=== PATIENT | female | born 1945 | race Caucasian/White ===

== ENCOUNTER → 2016-09-03 | Outpatient (REF) | payer MEDICARE, OTHER | LOC: M LAB 11:20 | PROVIDERS: ATTEND Physician Assistant Medical | DX: N39.0 Urinary tract infection, site not specified (principal) ==

== ENCOUNTER → 2016-09-14 | Outpatient (REF) | payer MEDICARE, OTHER | LOC: M LAB REF 09:34 | PROVIDERS: ATTEND Physician Assistant Medical | DX: N39.0 Urinary tract infection, site not specified (principal) ==

== ENCOUNTER → 2017-03-14 | Outpatient (REF) | payer MEDICARE, OTHER | LOC: M LAB REF 09:49 | PROVIDERS: ATTEND Physician Assistant | DX: N39.0 Urinary tract infection, site not specified (principal) ==

== ENCOUNTER → 2017-04-14 | Outpatient (CLI) | payer MEDICARE, OTHER ==
--- NOTE | 2017-04-14 14:58 | REP ---
LEFT KNEE SERIES: Five views of the left knee are performed. There is no acute fracture or dislocation. There is mild diffuse joint space narrowing in all joint compartments with mild subchondral sclerosis. There is mild spurring of the lateral patellar facet. I do not see a significant joint effusion. There is mild chondrocalcinosis in the medial and lateral joints. IMPRESSION: Mild degenerative changes as above. Signed by Abdifatah Schafer MD 04/14/2017 04:19 P
== END ==
LOC: M RAD 08:24
PROVIDERS: ATTEND Physician Assistant Medical
DX: M17.12 Unilateral primary osteoarthritis, left knee (principal)

== ENCOUNTER → 2017-05-02 | Outpatient (REF) | payer MEDICARE, OTHER | LOC: M LAB REF 13:13 | PROVIDERS: ATTEND Internal Medicine | DX: E21.3 Hyperparathyroidism, unspecified (principal) ==

== ENCOUNTER → 2017-10-12 | Outpatient (REF) | payer MEDICARE, OTHER ==
[2017-10-12 20:18] LABS: APPEARANCE, URINE CLEAR (CLEAR); BACTERIA, URINE AUTO 2+ (NEGATIVE); BILIRUBIN, URINE AUTO NEGATIVE (NEGATIVE); BLOOD, URINE BLOOD 1+ (NEGATIVE); COLOR, URINE STRAW (YELLOW); GLUCOSE, URINE (UA) AUTO NEGATIVE (NEGATIVE); KETONE, URINE AUTO NEGATIVE (NEGATIVE); LEUKOCYTE ESTERASE, URINE AUTO 2+ (NEGATIVE); NITRITE, URINE AUTO NEGATIVE (NEGATIVE); PROTEIN, URINE AUTO NEGATIVE (NEGATIVE); RBC, URINE AUTO 0 /HPF (0-3); SPECIFIC GRAVITY URINE AUTO 1.001 (1.002-1.035); SQUAMOUS EPITHELIAL CELL UR AU 0 /HPF (0-6); UROBILINOGEN, URINE AUTO 0.2 mg/dL (0.0-2.0); WBC, URINE AUTO 14 /HPF (0-3)
== END ==
LOC: M LAB REF 09:26
DX: N39.0 Urinary tract infection, site not specified (principal)
CPT/HCPCS: 81001

== ENCOUNTER → 2018-02-11 | Outpatient (CLI) | payer MEDICARE, OTHER ==
[2018-02-11 17:40] LABS: CREATININE FOR GFR 0.61 MG/DL (0.55-1.30); GLOMERULAR FILTRATION RATE > 60.0 (>39)
[2018-02-11 17:40] LABS: BLOOD UREA NITROGEN 15 MG/DL (7-18)
== END ==
LOC: M WUC 12:58
DX: D49.7 Neoplasm of unspecified behavior of endocrine glands and other parts of nervous system (principal); Z13.89 Encounter for screening for other disorder
CPT/HCPCS: 82565

== ENCOUNTER → 2018-09-17 | Outpatient (REF) | payer MEDICARE, OTHER | LOC: M LAB REF 13:23 | PROVIDERS: ATTEND Internal Medicine | DX: E83.52 Hypercalcemia (principal) ==

== ENCOUNTER 2018-12-25 07:45 | Day surgery (SDC) | payer MEDICARE, OTHER ==
[~2018-12-25] VITALS: Ht 167.6 cm; Wt 78.0 kg
[~2018-12-25 07:45] MED LIST: AMLO1TAB37 PO; ATOR1TAB21 PO; HYDR12CA PO; INSULANT SC; METF500T13 PO; METO1TAB7 PO; NS 1,000 ML IV ONE
[2018-12-25] MEDS ORDERED: PROPOFOL 200 MG/20 ML VIAL As Ordered ONE (07:57)
[2018-12-25] MEDS ORDERED: LIDOCAINE 2% INJ 100 MG/5 ML SDV (FOR ANES.) As Ordered ONE (07:57)
[2018-12-25] MEDS ORDERED: ePHEDrine SULFATE 25 MG/5 ML(5MG/ML) SYRINGE As Ordered ONE (09:06)
--- NOTE | 2018-12-25 09:25 | ROOR ---
Patient Name: Cindi Mireles Procedure Date: 12/25/2018 8:55 AM Date of : 1945 Age: 73 Room: [facility] Gender: Female Note Status: Finalized Procedure: Total Colonoscopy to Cecum + Cold Snare Polypectomy + Hemoclips Indications: High risk colon cancer surveillance: Personal history of colonic polyps Providers: Luis Miguel Pro MD Referring MD: ALON MEJIA JR, MD Requesting Provider: Medicines: Monitored Anesthesia Care Complications: No immediate complications. Procedure: Pre-Anesthesia Assessment: - The heart rate, respiratory rate, oxygen saturations, blood pressure, adequacy of pulmonary ventilation, and response to care were monitored throughout the procedure. The Colonoscope was introduced through the anus and advanced to the cecum, identified by appendiceal orifice and ileocecal valve. The colonoscopy was performed without difficulty. The patient tolerated the procedure well. The quality of the bowel preparation was excellent. Findings: The perianal and digital rectal examinations were normal. Non-bleeding internal hemorrhoids were found during retroflexion. The hemorrhoids were small and Grade I (internal hemorrhoids that do not prolapse). Three sessile polyps were found at 35 cm proximal to the anus. The polyps were small in size. These polyps were removed with a cold snare. Resection and retrieval were complete. To prevent bleeding after the polypectomy, three hemostatic clips were successfully placed (MR conditional). There was no bleeding at the end of the procedure. Scattered small-mouthed diverticula were found in the recto-sigmoid colon, sigmoid colon and descending colon. The exam was otherwise without abnormality on direct and retroflexion views. Impression: - Non-bleeding internal hemorrhoids. - Three small polyps at 35 cm proximal to the anus, removed with a cold snare. Resected and retrieved. Clips (MR conditional) were placed. - Diverticulosis in the recto-sigmoid colon, in the sigmoid colon and in the descending colon. - The examination was otherwise normal on direct and retroflexion views. - The exam was otherwise normal to the cecum. Recommendation: - Patient has a contact number available for emergencies. The signs and symptoms of potential delayed complications were discussed with the patient. Return to normal activities tomorrow. Written discharge instructions were provided to the patient. - High fiber diet. - Discharge patient to home. - Continue present medications. - Await pathology results. - Telephone GI clinic for pathology results in 1 week. - Repeat colonoscopy in 5 years for surveillance based on pathology results. - Return to referring physician. - The findings and recommendations were discussed with the patient's family. Luis Miguel Pro MD Luis Miguel Pro MD 12/25/2018 9:25:05 AM Electronically signed by Luis Miguel Pro MD Number of Addenda: 0 Note Initiated On: 12/25/2018 8:55 AM Estimated Blood Loss: Estimated blood loss: none.
[2018-12-25 09:45] VITALS: BP 112/59
== END 2018-12-25 09:58 | disposition home or self-care (01) ==
LOC: M OPP 07:45
PROVIDERS: ATTEND Internal Medicine Gastroenterology
DX: Z12.11 Encounter for screening for malignant neoplasm of colon (principal); Z86.010 Personal history of colon polyps; K64.0 First degree hemorrhoids; D12.5 Benign neoplasm of sigmoid colon; K57.30 Diverticulosis of large intestine without perforation or abscess without bleeding; I10 Essential (primary) hypertension; E11.9 Type 2 diabetes mellitus without complications; M19.90 Unspecified osteoarthritis, unspecified site; M54.2 Cervicalgia; Z88.2 Allergy status to sulfonamides; Z79.899 Other long term (current) drug therapy; Z79.4 Long term (current) use of insulin

== ENCOUNTER → 2019-02-11 | Outpatient (CLI) | payer MEDICARE, OTHER ==
[~2019-02-11] MED LIST changes: -NS 1,000 ML IV ONE
[2019-02-11 20:24] LABS: BLOOD UREA NITROGEN 11 MG/DL (7-18); CREATININE FOR GFR 0.63 MG/DL (0.55-1.30); GLOMERULAR FILTRATION RATE > 60.0 (>39)
== END ==
LOC: M WUC 15:50
PROVIDERS: ATTEND Neurological Surgery
DX: D49.7 Neoplasm of unspecified behavior of endocrine glands and other parts of nervous system (principal); Z13.89 Encounter for screening for other disorder

== ENCOUNTER → 2019-08-04 | Outpatient (REF) | payer MEDICARE, OTHER ==
[2019-08-04 17:10] LABS: APPEARANCE, URINE CLEAR (CLEAR); BACTERIA, URINE AUTO 1+ (NEGATIVE); BILIRUBIN, URINE AUTO NEGATIVE (NEGATIVE); BLOOD, URINE BLOOD 1+ (NEGATIVE); COLOR, URINE COLORLESS (YELLOW); GLUCOSE, URINE (UA) AUTO NEGATIVE (NEGATIVE); KETONE, URINE AUTO NEGATIVE (NEGATIVE); LEUKOCYTE ESTERASE, URINE AUTO 1+ (NEGATIVE); NITRITE, URINE AUTO NEGATIVE (NEGATIVE); PROTEIN, URINE AUTO NEGATIVE (NEGATIVE); RBC, URINE AUTO 0 /HPF (0-3); SPECIFIC GRAVITY URINE AUTO 1.002 (1.002-1.035); SQUAMOUS EPITHELIAL CELL UR AU 0 /HPF (0-6); UROBILINOGEN, URINE AUTO 0.2 mg/dL (0.0-2.0); WBC, URINE AUTO 10 /HPF (0-3)
== END ==
LOC: M LAB REF 16:27
PROVIDERS: ATTEND Physician Assistant Medical
DX: N39.0 Urinary tract infection, site not specified (principal)

== ENCOUNTER → 2020-02-23 | Outpatient (CLI) | payer MEDICARE, OTHER ==
[2020-02-23 20:14] LABS: BLOOD UREA NITROGEN 13 MG/DL (7-18); CREATININE FOR GFR 0.73 MG/DL (0.55-1.30); GLOMERULAR FILTRATION RATE > 60.0 (>39)
== END ==
LOC: M WUC 15:45
PROVIDERS: ATTEND Neurological Surgery
DX: D49.7 Neoplasm of unspecified behavior of endocrine glands and other parts of nervous system (principal)

== ENCOUNTER → 2020-07-07 | Outpatient (REF) | payer MEDICARE, OTHER ==
[2020-07-07 18:03] LABS: APPEARANCE, URINE CLEAR (CLEAR); BACTERIA, URINE AUTO 1+ (NEGATIVE); BILIRUBIN, URINE AUTO NEGATIVE (NEGATIVE); BLOOD, URINE BLOOD 3+ (NEGATIVE); COLOR, URINE STRAW (YELLOW); GLUCOSE, URINE (UA) AUTO NEGATIVE (NEGATIVE); KETONE, URINE AUTO NEGATIVE (NEGATIVE); LEUKOCYTE ESTERASE, URINE AUTO 3+ (NEGATIVE); NITRITE, URINE AUTO NEGATIVE (NEGATIVE); PROTEIN, URINE AUTO NEGATIVE (NEGATIVE); RBC, URINE AUTO 1 /HPF (0-3); SPECIFIC GRAVITY URINE AUTO 1.001 (1.002-1.035); SQUAMOUS EPITHELIAL CELL UR AU 0 /HPF (0-6); UROBILINOGEN, URINE AUTO 0.2 mg/dL (0.0-2.0); WBC, URINE AUTO 6 /HPF (0-3)
== END ==
LOC: M LAB REF 16:40
PROVIDERS: ATTEND Physician Assistant
DX: N39.0 Urinary tract infection, site not specified (principal)

== ENCOUNTER 2020-07-18 11:55 | Emergency (ER) | payer MEDICARE, OTHER ==
[~2020-07-18] VITALS: Ht 167.6 cm; Wt 79.6 kg
--- NOTE | 2020-07-18 13:32 | REP ---
INDICATION: firm, nontender area above left hip. COMPARISON: None. TECHNIQUE: Soft tissue ultrasound in the region of the palpable lump above the left hip. FINDINGS: Sonographic evaluation in this region shows no discrete mass, fluid collection, architectural distortion or skin thickening. IMPRESSION: Negative the ultrasound in the area of the palpable finding. Please recall that a lipoma, if that is a consideration, may be palpable but not visible sonographically in the absence of a capsule. <Electronically signed by Emile Beckett > 07/18/20 [id number]
--- OUTSIDE RECORDS SUMMARY | 2020-07-18 13:39 | CCD ---
Author Author [facility] Organization [facility] Address Unknown Phone Unavailable Care Team Providers Care Ssn/Ssbn Assistant Navigator Name Role Phone Benjie Coughlin MD Unavailable Unavailable Benjie Coughlin MD Unavailable Unavailable Benjie Coughlin MD Unavailable Unavailable Benjie Coughlin MD Unavailable Unavailable Benjie Coughlin MD Unavailable Unavailable Benjie Coughlin MD Unavailable Unavailable Benjie Coughlin MD Unavailable Unavailable Benjie Coughlin MD Unavailable Unavailable Benjie Coughlin MD Unavailable Unavailable Benjie Coughlin MD Unavailable Unavailable Benjie Coughlin MD Unavailable Unavailable Benjie Coughlin MD Unavailable Unavailable Benjie Coughlin MD Unavailable Unavailable Benjie Coughlin MD Unavailable Unavailable Benjie Coughlin MD Unavailable Unavailable Benjie Coughlin MD Unavailable Unavailable Benjie Coughlin MD Unavailable Unavailable Benjie Coughlin MD Unavailable Unavailable Benjie Coughlin MD Unavailable Unavailable Benjie Coughlin MD Unavailable Unavailable Benjie Coughlin MD Unavailable Unavailable Benjie Coughlin MD Unavailable Unavailable Benjie Coughlin MD Unavailable Unavailable Benjie Coughlin MD Unavailable Unavailable Benjie Coughlin MD Unavailable Unavailable Benjie Coughlin MD Unavailable Unavailable Benjie Coughlin MD Unavailable Unavailable CedBenjie MD Unavailable Unavailable CedBenjie MD Unavailable Unavailable CedBenjie MD Unavailable Unavailable BergtonBenjie MD Unavailable Unavailable CedBenjie MD Unavailable Unavailable BergtonBenjie MD Unavailable Unavailable CedBenjie MD Unavailable Unavailable BergtonBenjie MD Unavailable Unavailable BergtonBenjie MD Unavailable Unavailable BergtonBenjie MD Unavailable Unavailable CedBenjie MD Unavailable Unavailable BergtonBenjie MD Unavailable Unavailable CedBenjie MD Unavailable Unavailable CedBenjie MD Unavailable Unavailable CedBenjie MD Unavailable Unavailable CedBenjie MD Unavailable Unavailable CedBenjie MD Unavailable Unavailable CedBenjie MD Unavailable Unavailable BergtonBenjie MD Unavailable Unavailable BergtonBenjie MD Unavailable Unavailable CedBenjie MD Unavailable Unavailable CedBenjie MD Unavailable Unavailable CedBenjie MD Unavailable Unavailable CedBenjie MD Unavailable Unavailable CedBenjie MD Unavailable Unavailable CedBenjie MD Unavailable Unavailable BergtonBenjie MD Unavailable Unavailable BergtonBenjie MD Unavailable Unavailable CedBenjie MD Unavailable Unavailable BergtonBenjie MD Unavailable Unavailable BergtonBenjie MD Unavailable Unavailable CedBenjie MD Unavailable Unavailable CedBenjie MD Unavailable Unavailable BergtonBenjie MD Unavailable Unavailable CedBenjie MD Unavailable Unavailable CedBenjie donaldson MD Unavailable Unavailable BergtonBenjie MD Unavailable Unavailable CedBenjie MD Unavailable Unavailable BergtonBenjie MD Unavailable Unavailable CedBenjie MD Unavailable Unavailable CedBenjie MD Unavailable Unavailable CedBenjie MD Unavailable Unavailable CedBenjie MD Unavailable Unavailable CedBenjie MD Unavailable Unavailable BergtonBenjie MD Unavailable Unavailable BergtonBenjie MD Unavailable Unavailable CedBenjie MD Unavailable Unavailable CedBenjie MD Unavailable Unavailable BergtonBenjie MD Unavailable Unavailable CedBenjie MD Unavailable Unavailable BergtonBenjie MD Unavailable Unavailable CedBenjie MD Unavailable Unavailable BergtonBenjie MD Unavailable Unavailable BergtonBenjie MD Unavailable Unavailable CedBenjie MD Unavailable Unavailable BergtonBenjie MD Unavailable Unavailable Bergton, Benjie Torres MD Unavailable Unavailable Bergton, Benjie Torres MD Unavailable Unavailable Bergton, Benjie Torres MD Unavailable Unavailable RAYA, Sofia RIVERA MD Unavailable Unavailable RAYA, Sofia RIVERA MD Unavailable Unavailable RAYA, Sofia RIVERA MD Unavailable Unavailable RAYA, Sofia RIVERA MD Unavailable Unavailable RAYA, Sofia RIVERA MD Unavailable Unavailable RAYA, Sofia RIVERA MD Unavailable Unavailable RAYA, Sofia RIVERA MD Unavailable Unavailable RAYA, Sofia RIVERA MD Unavailable Unavailable RAYA, Sofia RIVERA MD Unavailable Unavailable RAYA, Sofia RIVERA MD Unavailable Unavailable RAYA, Sofia RIVERA MD Unavailable Unavailable RAYA, Sofia RIVERA MD Unavailable Unavailable RAYA, Sofia RIVERA MD Unavailable Unavailable RAYA, Sofia RIVERA MD Unavailable Unavailable RAYA, Sofia RIVERA MD Unavailable Unavailable RAYA, Sofia RIVERA MD Unavailable Unavailable RAYA, Sofia RIVERA MD Unavailable Unavailable RAYA, Sofia RIVERA MD Unavailable Unavailable RAYA, Sofia RIVERA MD Unavailable Unavailable RAYA, Sofia RIVERA MD Unavailable Unavailable RAYA, Sofia RIVERA MD Unavailable Unavailable RAYA, Sofia RIVERA MD Unavailable Unavailable RAYA, Sofia RIVERA MD Unavailable Unavailable RAYA, Sofia RIVERA MD Unavailable Unavailable RAYA, Sofia RIVERA MD Unavailable Unavailable RAYA, Sofia RIVERA MD Unavailable Unavailable RAYA, Sofia RIVERA MD Unavailable Unavailable RAYA, Sofia RIVERA MD Unavailable Unavailable RAYA, Sofia RIVERA MD Unavailable Unavailable RAYA, Sofia RIVERA MD Unavailable Unavailable RAYA, Sofia RIVERA MD Unavailable Unavailable RAYA, Sofia RIVERA MD Unavailable Unavailable RAYA, Sofia RIVERA MD Unavailable Unavailable RAYA, Sofia RIVERA MD Unavailable Unavailable RAYA, Sofia RIVERA MD Unavailable Unavailable RAYA, Sofia RIVERA MD Unavailable Unavailable RAYA, Sofia RIVERA MD Unavailable Unavailable RAYA, Sofia RIVERA MD Unavailable Unavailable RAYA, Sofia RIVERA MD Unavailable Unavailable RAYA, Sofia RIVERA MD Unavailable Unavailable RAYA, A KEN ARAMBULA Unavailable Unavailable RAYA, Sofia RIVERA MD Unavailable Unavailable RAYA, Sofia RIVERA MD Unavailable Unavailable RAYA, Sofia RIVERA MD Unavailable Unavailable RAYA, Sofia RIVERA MD Unavailable Unavailable RAYA, A KEN ARAMBULA Unavailable Unavailable RAYA, A KEN ARAMBULA Unavailable Unavailable RAYA, Sofia RIVERA MD Unavailable Unavailable RAYA, Sofia RIVERA MD Unavailable Unavailable RAYA, Sofia RIVERA MD Unavailable Unavailable RAYA, A KEN ARAMBULA Unavailable Unavailable RAYA, A KEN ARAMBULA Unavailable Unavailable RAYA, Sofia RIVERA MD Unavailable Unavailable RAYA, Sofia RIVERA MD Unavailable Unavailable RAYA, Sofia RIVERA MD Unavailable Unavailable RAYA, Sofia RIVERA MD Unavailable Unavailable RAYA, Sofia RIVERA MD Unavailable Unavailable RAYA, Sofia RIVERA MD Unavailable Unavailable RAYA, Sofia RIVERA MD Unavailable Unavailable RAYA, Sofia RIVERA MD Unavailable Unavailable RAYA, Sofia RIVERA MD Unavailable Unavailable RAYA, Sofia RIVERA MD Unavailable Unavailable RAYA, Sofia RIVERA MD Unavailable Unavailable RAYA, Sofia RIVERA MD Unavailable Unavailable RAYA, Sofia RIVERA MD Unavailable Unavailable RAYA, Sofia RIVERA MD Unavailable Unavailable RAYA, Sofia RIVERA MD Unavailable Unavailable RAYA, Sofia RIVERA MD Unavailable Unavailable RAYA, Sofia RIVERA MD Unavailable Unavailable RAYA, Sofia RIVERA MD Unavailable Unavailable RAYA, Sofia RIVERA MD Unavailable Unavailable RAYA, Sofia RIVERA MD Unavailable Unavailable RAYA, Sofia RIVERA MD Unavailable Unavailable RAYA, Sofia RIVERA MD Unavailable Unavailable RAYA, Sofia RIVERA MD Unavailable Unavailable RAYA, Sofia RIVERA MD Unavailable Unavailable RAYA, Sofia RIVERA MD Unavailable Unavailable RAYA, Sofia RIVERA MD Unavailable Unavailable RAYA, Sofia RIVERA MD Unavailable Unavailable RAYA, Sofia RIVERA MD Unavailable Unavailable RAYA, Sofia RIVERA MD Unavailable Unavailable RAYA, A KEN MD Unavailable Unavailable RAYA, A KEN MD Unavailable Unavailable RAYA, A KEN MD Unavailable Unavailable RAYA, A KEN MD Unavailable Unavailable Re-disclosure Warning The records that you are about to access may contain information from federally-assisted alcohol or drug abuse programs. If such information is present, then the following federally mandated warning applies: This information has been disclosed to you from records protected by federal confidentiality rules (42 CFR part 2). The federal rules prohibit you from making any further disclosure of this information unless further disclosure is expressly permitted by the written consent of the person to whom it pertains or as otherwise permitted by 42 CFR part 2. A general authorization for the release of medical or other information is NOT sufficient for this purpose. The Federal rules restrict any use of the information to criminally investigate or prosecute any alcohol or drug abuse patient.The records that you are about to access may contain highly sensitive health information, the redisclosure of which is protected by Article 27-F of the [facility] Public Health law. If you continue you may have access to information: Regarding HIV / AIDS; Provided by facilities licensed or operated by the [facility] Office of Mental Health; or Provided by the [facility] Office for People With Developmental Disabilities. If such information is present, then the following [facility] mandated warning applies: This information has been disclosed to you from confidential records which are protected by state law. State law prohibits you from making any further disclosure of this information without the specific written consent of the person to whom it pertains, or as otherwise permitted by law. Any unauthorized further disclosure in violation of state law may result in a fine or shelter sentence or both. A general authorization for the release of medical or other information is NOT sufficient authorization for further disc losure. Family History Family Member Name Family Member Gender Family Member Status Date o f Status Description Data Source(s) Unknown Male Problem [facility] ([facility]) ONSET AGE 54. AT AGE 89 Unknown Female Encounters Encounter Providers Location Date Indications Data Source(s ) Outpatient Attender: Brian Watkins 1 03:00:00 PM EDT [facility] ([facility] ) Outpatient Attender: KEN DOS SANTOS MD [id number] 03/16/2020 12:00:00 AM [facility] Outpatient Attender: KEN DOS SANTOS MD 02/16/2020 12 :00:00 AM [facility] Outpatient Referrer: KEN DOS SANTOS MD 02/16/2020 12 :00:00 AM [facility] Outpatient Attender: Brian Coughlin Roland 0 09/16/2019 03:00:00 PM EDT [facility] ([facility] ) Immunizations Vaccine Date Status Description Data Source(s) Influenza, injectable, MDCK, preservative free, alirio valent 03/17/2020 03:30:00 PM EDT completed [facility]) Medications Medication Brand Name Start Date Product Form Dose Route Admi nistrative Instructions Pharmacy Instructions Status Indications Reaction Description Data Source(s) 3 gram 07/09/2020 12:00:00 AM EST packet 1 TAKE 3G BY MOUTH ONCE TAKE 3G BY MOUTH ONCE SOLD: 07/10/2020 [facility] Cephalexin 500 MG Oral Capsule CEPHALEXIN 07/07/2020 12:00:00 AM EST capsule 21 TAKE ONE CAPSULE BY MOUTH THREE TIMES A DAY FOR 7 DAYS TAKE ONE CAPSULE BY MOUTH THREE TIMES A DAY FOR 7 DAYS SOLD: 07/07/2020 [facility] Administration Of Flu Vaccine 03/17/2020 12:00:00 AM EDT completed [facility] ([facility]) Medication administered onsite 500 mg 08/04/2019 12:00:00 AM EDT tablet 10 TAKE ONE TABLET BY MOUTH EVERY 12 HOURS FOR 5 DAYS TAKE ONE TABLET BY MOUTH EVERY 12 HOURS FOR 5 DAYS [facility] Adacel 07/15/2019 12:00:00 AM EST completed [facility] ([facility]) Medication administered onsite BD Pen Frank Uf Mini 5mm 31G3/16 07/06/2019 12:00:00 AM EST active [facility] ([facility] ) Insurance Providers Payer name Policy type / Coverage type Policy ID Covered alliance party ID Covered alliance party's relationship to anders Policy Anders Plan Information R [facility] [id number] SP [id number] MEDICARE [id number] SP [id number] MEDICARE A [id number] Self [id number] UMR U [id number] Self [id number] UMR O [id number] S [id number] MEDICARE C [id number] S [id number] UMR HEA [id number] S [id number] MEDICARE MCA [id number] S [id number] [id number] MEDICARE MCA [id number] S [id number] UMR HEA [id number] S [id number] MEDICARE MCA [id number] S [id number] A MEDICARE MCA [id number] S [id number] A UMR [facility] CARE [id number] SP [id number] Umr Medigap Part B [id number] Self [id number] Medicare [place] Primary [id number] Self [id number] [facility] HEA [id number] S [id number] UNAVAILABLE UNAVAILA BLE [facility] HEA UNAVAILABLE S UNAVAILABLE MEDICARE A [id number] Self [id number] POMCO U [id number] Self [id number] POMCO [id number] SP [id number] MEDICARE [id number] SP [id number] A Umr [place] Ppo Medigap Part B [id number] Family Dependent [id number] Umr [place] Ppo Medigap Part B [id number] Self [id number] Medicare [place] Govt Servic Medicare Primary [id number] Self [id number] POMCO PPO O [id number] S [id number] MEDICARE C [id number] S [id number] A POMCO HEA [id number] S [id number] [place] Ppo Medigap Part B [id number] Family Dependent [id number] [place] Ppo Medigap Part B [id number] Self [id number] Medicare [place] Govt Servic Medicare Primary Self POMCO HEA [id number] POMCO HEA [id number] MEDICARE [id number] SP [id number] A [place] Commercial Self [place] Primary Self POMCO U [id number] Self [id number] MEDICARE M [id number] S [id number] A POMCO O [id number] S [id number] POMCO U [id number] Self [id number] MEDICARE PART A-RECURRING [id number] 18 [id number] MEDICARE INPATIENT M [id number] S [id number] MEDICARE OUTPATIENT M [id number] S [id number] POMCO O [id number] S [id number] POMCO-RECURRING [id number] Results ID Date Data Source [id number] 03/17/2020 02:55:00 PM EDT [facility] ([facility]) Name Value Range Interpretation Code Description Data Rajni rce(s) Supporting Document(s) Microalbumin Urine 18.6 mg/L 1.3-20.0 [facility] ([facility]) Urine Creatinine 66.0 mg/dL 30.0-125.0 [facility] ([facility]) Microalb/Creat Ratio 28.2 ug/mg 0.0-30.0 [facility] ( [facility]) ID Date Data Source [id number] 03/17/2020 02:55:00 PM EDT [facility] ([facility]) Name Value Range Interpretation Code Description Data Rajni rce(s) Supporting Document(s) Cholesterol [Mass/volume] in Serum or Plasma 122 mg/dL 131-200 [facility] ([facility]) Cholesterol in HDL [Mass/volume] in Serum or Plasma 53 mg/dL 35-60 [facility] ([facility]) Triglyceride [Mass/volume] in Serum or Plasma 67 mg/dL 30-150 [facility] ([facility]) Cholesterol in LDL [Mass/volume] in Serum or Plasma by calcu lation 56 CALC 50-159 [facility] ([facility]) ID Date Data Source [id number] 03/17/2020 02:55:00 PM EDT [facility] ([facility]) Name Value Range Interpretation Code Description Data Rajni rce(s) Supporting Document(s) Urea nitrogen [Mass/volume] in Serum or Plasma 14 mg/dL 7-18 [facility] ([facility]) Glucose [Mass/volume] in Serum or Plasma 93 mg/dL 74-99 [facility] ([facility]) 100-125 mg/dL PRE-DIABETES/FASTING >126 mg/dL DIABETES/FASTING Sodium [Moles/volume] in Serum or Plasma 140 meq/L 136-145 [facility] ([facility]) NOTE: POTASSIUM AND CALCIUM VERIFIED Potassium [Moles/volume] in Serum or Plasma 3.4 meq/L 3.5-5.1 [facility] ([facility]) Creatinine 0.7 mg/dL 0.6-1.3 [facility] Chloride [Moles/volume] in Serum or Plasma 102 meq/L 98-107 [facility] ([facility]) Carbon dioxide, total [Moles/volume] in Serum or Plasma 28 meq/L 21 -32 [facility] ([facility]) Calcium [Mass/volume] in Serum or Plasma 10.3 mg/dL 8.5-10.1 [facility] ([facility]) Alkaline phosphatase isoenzyme [Units/volume] in Serum or Pl asma 79 mg/dL 46-116 [facility] ([facility]) Total Bilirubin 0.7 mg/dL 0.2-1.0 [facility] ([facility]) Aspartate aminotransferase [Enzymatic activity/volume] in Serum or Plasma 19 U/L 15-37 [facility] ([facility] ) Alanine aminotransferase [Enzymatic activity/volume] in Seru m or Plasma 25 U/L 12-78 [facility] ([facility]) Proteinase 3 Ab [Units/volume] in Serum 7.5 g/dL 6.4-8.2 [facility] ([facility]) Albumin [Mass/volume] in Serum or Plasma 4.3 g/dL 3.4-5.0 [facility] ([facility]) A/G Ratio 1.34 CALC 1.00-1.90 [facility]) Glomerular filtration rate/1.73 sq M pre dicted among blacks [Volume Rate/Area] in Serum or Plasma by Creatinine-based formula (MDRD) Laboratory test result [facility]) <content>CHRONIC KIDNEY DISEASE STAGING PER NKF</content>
<content></content>
<content>STAGE I & II GFR >= 60 NORMAL TO MILDLY DECREASED</content>
<content>STAGE III GFR 30-59 MODERATELY DECREASED</content>
<content>STAGE IV GFR 15-29 SEVERELY DECREASED</content>
<content>STAGE V GFR <15 VERY LITTLE GFR LEFT</content>
<content>ESRD GFR <15 ON DETECTIVE AND INTELLIGENCE ANALYST</content>
<content></content> Glomerular filtration rate/1.73 sq M pre dicted among non-blacks [Volume Rate/Area] in Serum or Plasma by Creatinine-based formula (MDRD) Laboratory test result [facility] ([facility] ) ID Date Data Source [id number] 03/17/2020 02:55:00 PM EDT [facility]) Name Value Range Interpretation Code Description Data Rajni rce(s) Supporting Document(s) Hemoglobin A1c/Hemoglobin.total in Blood 7.5 % [facility] ([facility]) Lab Result Notes: Pre-Diabetes 5.7 - 6.4 % Diabetes = or > 6.5% Glucose mean value [Mass/volume] in Blood Estimated fr om glycated hemoglobin 169 mg/dL 60-110 [facility] ([facility] ) ID Date Data Source [id number] 03/17/2020 02:55:00 PM EDT [facility]) Name Value Range Interpretation Code Description Data Rajni rce(s) Supporting Document(s) Leukocytes [#/volume] in Blood by Automated count 5.8 x10*3/UL 4.1-10 .9 [facility] ([facility]) Erythrocytes [#/volume] in Blood by Automated count 5.13 x10*6/UL 4.2 0-6.30 [facility] ([facility]) Hemoglobin [Mass/volume] in Blood 14.3 g/dL 12.0-18.0 [facility] ([facility]) Hematocrit [Volume Fraction] of Blood by Automated count 41.8 % 3 7.0-51.0 [facility] ([facility]) MCV 81.5 fL 80.0-97.0 [facility] MCH 27.8 pg 26.0-32.0 [facility] [place] MCHC 34.1 g/dL 31.0-38.0 [facility] Erythrocyte distribution width [Ratio] by Automated count 12.6 % 11.6-13.7 [facility] ([facility]) Platelets [#/volume] in Blood by Automated count 324 x10*3/UL 140-440 [facility] ([facility]) MPV 8.7 FL 7.8-11.0 [facility] Mid % 6.5 % 1.7-9.3 [facility] Lymph % 33.8 % 10.0-58.5 [facility]) Lymph # 1.9 x10*3/UL 0.6-4.1 [facility] ([facility]) Neut % 59.7 % 37.0-92.0 [facility]) Mid # 0.5 x10*3/UL 0.1-0.6 [facility] ([facility]) Neut # 3.4 x10*3/UL 2.0-7.8 [facility] ([facility]) ID Date Data Source [id number] 03/17/2020 02:55:00 PM EDT [facility] ([facility]) Name Value Range Interpretation Code Description Data Rajni rce(s) Supporting Document(s) Hemoglobin A1c/Hemoglobin.total in Blood Laboratory test result [facility] ([facility]) ID Date Data Source [id number] 03/16/2020 11:30:53 AM EDT [facility] Name Value Range Interpretation Code Description Data Rajni rce(s) Supporting Document(s) Progress Note [facility] OPKYYw0yMxPVGdSr94/WNIjkHKMdh9DaCMxtAHz3QBaqFQBzG0FqEVB0tC7vZRM5BPmBDcDbQzTdZUMh [facility] QeMizDOsTdHSXtAnkWEyBlUPniOgvlkTTcET7TpQN1ULGbX06nQVUfMERtS4GiUVMvALo+Ie1XKHWisC EmIR7MMccW4S87SazMDs64df3uAcldecBc7E7+elMZCIWIl1TdsztB/sQJZTAYKksQ5MS87xqB9gPtb5 /IrWBljVKXqMSq40m1F0361oYH4h+qmG9ZGG2r1z/r O5SGuhTS/PEPonnNk/Vrza/sJfKBdGInKj/NwaNcnn39ahA06bpllsfWasYU0vXQvaR2sOYdWndjJALN V6/Ef83sgt0Oc+WqwwC2GCxdNKu66tWMkmdrXSgTg6wbxa8zxqDow9O7FjbHu30Yp3w4LsxPtKWAKKeK 3ZPSPJ88afF2s6yGDLiLTWKiiNi9A3nyfhYnS9htbb z9gVitVVSjkDzYkCwrTFQiWDabsD85UtFFDl/W03S+SomumFL2ZJ4hEBakm3VUQCS8CZLBnrIfJdR/lr xboEufbFnyfgHdgTgfYJKuUBBGLgS7h+jC0wZm7D9JG8wQZnYBn7nZqhl2dyn81EJ4JU1zsAp5eAcpDK q8Nyeaw3Ivv5MJAqS+WJBP/Dsih2Wnbfr38oRaSCuL MAJBD3uR3olCRG9Ye+uS4u0bl+BHQVkwVe95aLXvwdl9IV1K0eM2aeaGIkYzy1z07SbF4N4Fgw+WzSAs tutduI1qsrZtTxpjhxJXjjnuXXStij0PIoNeuMfVlOV+zOSV0ruzqaEzKFCDsjiUOD1PIvyx+SyKG4b2 0hH7dWp8TpqxCNIsTRfbkOrl9eN39ZLsQ34I4B3GD4 ALZ0ESnVGbnyhOWQlePAHJaYvkYqddZO1pr9VXj40Z+bBqjmh/xZ7s6qoMkgXStUuo/HuSAMBzXb+PATRICIA [file] ICAgICAgICAgICAgICAgICAgICAgICAgICAgICAgIC AgICAgICAgICAgICAgICAgICAgICAgICAgICAgICAgICAgICAgICAgICAgICAgICAgICAgICAgICANCi AgICAgICAgICAgICAgICAgICAgICAgICAgICAgICAgICAgICAgICAgICAgICAgICAgICAgICAgICAgIC AgICAgICAgICAgICAgICAgICAgICAgICAgICAgICAg ICAgICAgICANCiAgICAgICAgICAgICAgICAgICAgICAgICAgICAgICAgICAgICAgICAgICAgICAgICAg ICAgICAgICAgICAgICAgICAgICAgICAgICAgICAgICAgICAgICAgICAgICAgICAgICANCiAgICAgICAg ICAgICAgICAgICAgICAgICAgICAgICAgICAgICAgIC AgICAgICAgICAgICAgICAgICAgICAgICAgICAgICAgICAgICAgICAgICAgICAgICAgICAgICAgICAgIC ANCiAgICAgICAgICAgICAgICAgICAgICAgICAgICAgICAgICAgICAgICAgICAgICAgICAgICAgICAgIC AgICAgICAgICAgICAgICAgICAgICAgICAgICAgICAg ICAgICAgICAgICANCiAgICAgICAgICAgICAgICAgICAgICAgICAgICAgICAgICAgICAgICAgICAgICAg ICAgICAgICAgICAgICAgICAgICAgICAgICAgICAgICAgICAgICAgICAgICAgICAgICAgICANCiAgICAg ICAgICAgICAgICAgICAgICAgICAgICAgICAgICAgIC AgICAgICAgICAgICAgICAgICAgICAgICAgICAgICAgICAgICAgICAgICAgICAgICAgICAgICAgICAgIC AgICANCiAgICAgICAgICAgICAgICAgICAgICAgICAgICAgICAgICAgICAgICAgICAgICAgICAgICAgIC AgICAgICAgICAgICAgICAgICAgICAgICAgICAgICAg ICAgICAgICAgICAgICANCiAgICAgICAgICAgICAgICAgICAgICAgICAgICAgICAgICAgICAgICAgICAg ICAgICAgICAgICAgICAgICAgICAgICAgICAgICAgICAgICAgICAgICAgICAgICAgICAgICAgICANCiAg ICAgICAgICAgICAgICAgICAgICAgICAgICAgICAgIC AgICAgICAgICAgICAgICAgICAgICAgICAgICAgICAgICAgICAgICAgICAgICAgICAgICAgICAgICAgIC AgICAgICANCjw/nVYsA9tbdJFwmdA6Q5bdQy4BZf8OVJ3rt6MmBKWkYUmeyxTcMplMXkNsHRZcGjaJOt k1VFjhAU3CfUHoF4IvT0PaFKbpOX0SSGUzZUJswIGx DCDsDKZxKdE5UZTlCBqeJA2XqXHyKPjyKKFmLISwNbCrMAEmQQZmZBVcZU4QARVgZ110kxOkTf9YNm5Y JoKzMR8ehc1GLqGsSKMiUlbEImj7DTzeJO6BnXGqbPGpXgUmZHGXMxBcZ2vii5IdBfxlLAACNSxfZC0L g5CqjALvBQn+Au1VFR5od7RtSMqdLhGzEV2lbn3SJD xUHfBhB2MmwDowXPUyx7vvNLQoZK0ofGXvXTX9OZ1zDJyyOY7nIXNVXXJkncPgYMALZHKhuHOaJF9cXW 9eOLQvMNYrEbS0WDWQKF2CEVYuXNAbzBJwSADaAPHDGN0HUWjcHWI8USZtsiHycYSbDWrtLL7RKDKdkj QgMjYgMCBSDQo+Vn2KOR4hx4ZiTJosILUsUG9iuk2O MTpSXgZvE7A0aLJfA2T5BUhyMw9QKSLeQOWvMuXmZVZNAKgtWQ0SFJ5avcX6GX5RsBDzHTCrBIEjbYOo ULn9N15rnXFrPOxgCP3SUDH+Liliana+Yk8FLSWmYYKrHDJgHjPtMHUMBiTrS1HsA5KOa2QdN0MbOY37tByd veYlLQgpRC4LXK2rJNIjVTEMJE5HjCRkuP0bjtKjWg NfXMSJCjFzF02eoTBzUOVrBVJ5TIHnOs1QAQBxE5RfwzJuzIltmzRbRQVgMYNMSN5LBYtnzzXepLJgeC jsJR47mXwfXS4EHn3THmXlDQ8fvo8GbFRdXm5ZIETxNI8AYYNpJILfCPZoIWC3GTElGdWnNGkgVPAcDT DgATL7ZRWqCEKcHH1STrVvDENjVyZsKOLuNRHaDVPi sh9JCLLiHYCcCnBsGmZiYICbNIRcSQvuGOZcVKQfQBC7FJEoBWOjSU1PMeOhRUVdMBViCdTrIFPbJJLw qu8CJRBaPGFlRUKqUHMkJCDpFDToBVgaSKDkCVP1AEE0LNCmBAQwJK4BVjEdQCKaXOmcNVXyHCWsYTRh mk9VGULdVYPtKmL6QaMiODOlOYPbAGgaWGNyDPW2DG DzNASqPOWmCS7IKtYfRLWtAIu1NnRbNKPtECEtms3ZSBEkOMJsCJY3AQYmKDPnIPIbXOmpCLOtBBT1Lj GzJFPjMGMtJD2MFcXkIGChOJPjBJDgFLHaTAGgsy5ULVEtCCMxLGPcOcXoLGMmDPZeXVrwHHGlYIVdOX qiJEBzRIGfLG2DYhAmJATuPsJkTrTuRWXcLDDlrz2K DLAxHOJdVwO1AHYyCIEnAFQmBTogOIFoFRIqCUG9DZFqFGQuUE7LDwHkZFMuLzJ8XFLmARTqIASclt1Y OPTiLOGuOpx8PRYiCMDaXQDfSCdvRHItPQPtBAt9HXTxPPUlBE8XGnEcUSJhBfUkDAUvOZJzQJFmnj4F MCLqBCIgTIN2LRQcZRPzERWnDSxsJEJaRUG8Jrw5XH VgPXOcRT1EAtTpZUFpZuAcCfqoGKVmAITuvm3EQRIxDYZcVcB7IEEhKUZsMIHrCDrwUDSmEMI5UpVyKJ KuJIZiZH9NXbYiZPyeDINMKyf5KSxdP5d0SBXqMR8FZ6Him3InXhlzDDOALKtpVA4glpKoREYpDe7KV0 bINhmtZtGfOAH2XTf2XEQhXuPeLwfyJaF1JhRqCDX8 [id number]= ID Date Data Source [id number] 03/03/2020 12:00:00 AM EDT [facility] Ken MD Raya Patient Name: AKOSUA WAHL [id number] [facility] Date of : [facility] Date of Exam: 03/03/2020TONY Araujo [id number]#: Fax: [phone] EXAM: MRI CERVICAL SPINE WITHOUT&WITH CONTRASTPROCEDURE INFORMATION:Exam: MR Cervical Spine Without and With ContrastExam date and time: 03/03/2020 10:57 AM Age: 74 years oldClinical indication: Condition or disease; Other: HX spinal cord tumor removal; Prior surgery; Surgery date: 6+months; Surgery type: Spinal cord tumor removal 2012TECHNIQUE: Imaging protocol: Multiplanar magnetic resonance images of thecervical spine without and with intravenous contrast. Contrast material:PROHANCE; Contrast volume: 16 ml; Contrast route: INTRAVENOUS (IV);COMPARISON: No relevant prior studies available.FINDINGS:Vertebrae: There are laminectomy changes at C4 and C5. The there isstraightening of the normal cervical lordosis. There is minimalanterolisthesis of F C3 with respect to C4. There is no fracture. There ismoderate to severe intervertebral disc space loss at C4/5, C5/6 and C6/7,with endplate changes.Spinal cord: There is focally increased signal within the substance of thecord at C5 with cord thinning, compatible with myelomalacia.C2- C3: There is a shallow disc osteophyte complex. There is mild facethypertrophy. The spinal canal and neural foramina are patent.C3-C4: There is a diffuse disc osteophyte complex. There is mild right andsevere left facet hypertrophy. There is moderate to severe right and severeleft neural foraminal narrowing. C4-C5: There are laminectomy changes.There is a shallow disc osteophyte complex. There is moderate facethypertrophy. There is severe bilateral neural foraminal narrowing.C5-C6: There are laminectomy changes. There is a diffuse disc osteophytecomplex. There is moderate right and mild left facet hypertrophy. There ismoderate to severe right and moderate left neural foraminal narrowing.There is mild canal stenosis. C6-C7: There is a diffuse disc osteophytecomplex. There is mild facet hypertrophy. There is severe bilateral neuralforaminal narrowing. There is moderate canal stenosis.C7-T1: No significant disc disease. No significant spinal stenosis.Vertebral arteries: Expected flow voids in the vertebral arteries.Soft tissues: Unremarkable.IMPRESSION:1. Postoperative change reflecting C4/5 laminectomies. Stable myelomalaciaat C4/5.2. Degenerative disc disease and spondylosis.Thank you for allowing us to participate in the care of your patient.Dictated and Authenticated by: Mackenzie Sepulveda MD 03/03/2020 2:09 PMEastern Time ([place] & [place])Del/Rian you for referring AKOSUA WAHL to our office. Electronically Signed - MATTHEW 03/03/20 15:26 Name Value Range Interpretation Code Description Data Rajni rce(s) Supporting Document(s) ID Date Data Source [id number] 09/16/2019 08:33:00 AM EDT [facility] ([facility]) Name Value Range Interpretation Code Description Data Rajni rce(s) Supporting Document(s) Microalbumin Urine 27.5 mg/L 1.3-20.0 [facility] ([facility]) Microalb/Creat Ratio 32.9 ug/mg 0.0-30.0 [facility] ( [facility]) Urine Creatinine 83.7 mg/dL 30.0-125.0 [facility] ([facility]) ID Date Data Source [id number] 09/16/2019 08:33:00 AM EDT [facility] ([facility]) Name Value Range Interpretation Code Description Data Rajni rce(s) Supporting Document(s) Triglyceride [Mass/volume] in Serum or Plasma 100 mg/dL 30-150 [facility] ([facility]) Cholesterol [Mass/volume] in Serum or Plasma 118 mg/dL 131-200 [facility] ([facility]) Cholesterol in HDL [Mass/volume] in Serum or Plasma 43 mg/dL 35-60 [facility] ([facility]) Cholesterol in LDL [Mass/volume] in Serum or Plasma by calcu lation 55 CALC 50-159 [facility] ([facility]) ID Date Data Source [id number] 09/16/2019 08:33:00 AM EDT [facility] ([facility]) Name Value Range Interpretation Code Description Data Rajni rce(s) Supporting Document(s) Glucose [Mass/volume] in Serum or Plasma 173 mg/dL 74-99 [facility] ([facility]) 100-125 mg/dL PRE-DIABETES/FASTING >126 mg/dL DIABETES/FASTING Creatinine 0.8 mg/dL 0.6-1.3 [facility]) Sodium [Moles/volume] in Serum or Plasma 142 meq/L 136-145 [facility] ([facility]) Urea nitrogen [Mass/volume] in Serum or Plasma 20 mg/dL 7-18 [facility] ([facility]) Carbon dioxide, total [Moles/volume] in Serum or Plasma 27 meq/L 21 -32 [facility] ([facility]) Chloride [Moles/volume] in Serum or Plasma 104 meq/L 98-107 [facility] ([facility]) Potassium [Moles/volume] in Serum or Plasma 4.1 meq/L 3.5-5.1 [facility] ([facility]) Calcium [Mass/volume] in Serum or Plasma 9.3 mg/dL 8.5-10.1 [facility] ([facility]) Aspartate aminotransferase [Enzymatic activity/volume] in Serum or Plasma 17 U/L 15-37 [facility] ([facility] Total Bilirubin 0.5 mg/dL 0.2-1.0 [facility] ([facility]) Alkaline phosphatase isoenzyme [Units/volume] in Serum or Pl asma 84 mg/dL 46-116 [facility] ([facility]) Proteinase 3 Ab [Units/volume] in Serum 6.8 g/dL 6.4-8.2 [facility] ([facility]) Alanine aminotransferase [Enzymatic activity/volume] in Seru m or Plasma 26 U/L 12-78 [facility] ([facility]) Albumin [Mass/volume] in Serum or Plasma 4.1 g/dL 3.4-5.0 [facility] ([facility]) Glomerular filtration rate/1.73 sq M pre dicted among blacks [Volume Rate/Area] in Serum or Plasma by Creatinine-based formula (MDRD) Laboratory test result [facility] ([facility]) <content>CHRONIC KIDNEY DISEASE STAGING PER NKF</content>
<content></content>
<content>STAGE I & II GFR >= 60 NORMAL TO MILDLY DECREASED</content>
<content>STAGE III GFR 30-59 MODERATELY DECREASED</content>
<content>STAGE IV GFR 15-29 SEVERELY DECREASED</content>
<content>STAGE V GFR <15 VERY LITTLE GFR LEFT</content>
<content>ESRD GFR <15 ON DETECTIVE AND INTELLIGENCE ANALYST</content>
<content></content> A/G Ratio 1.52 CALC 1.00-1.90 [facility] ([place] [facility] [place]) Glomerular filtration rate/1.73 sq M pre dicted among non-blacks [Volume Rate/Area] in Serum or Plasma by Creatinine-based formula (MDRD) Laboratory test result [facility] ([facility] ) ID Date Data Source [id number] 09/16/2019 08:33:00 AM EDT [facility] ([facility]) Name Value Range Interpretation Code Description Data Rajni rce(s) Supporting Document(s) Hemoglobin A1c/Hemoglobin.total in Blood 7.7 g/dL 4.8-5.6 [facility] ([facility]) Lab Result Notes: Pre-Diabetes 5.7 - 6.4 % Diabetes = or > 6.5% Glucose mean value [Mass/volume] in Blood Estimated fr om glycated hemoglobin 174 mg/dL 60-110 [facility] ([facility] ) ID Date Data Source [id number] 09/16/2019 08:33:00 AM EDT [facility] ([facility]) Name Value Range Interpretation Code Description Data Rajni rce(s) Supporting Document(s) Leukocytes [#/volume] in Blood by Automated count 5.0 x10*3/UL 4.1-10 .9 [facility] ([facility]) Hemoglobin [Mass/volume] in Blood 13.7 g/dL 12.0-18.0 [facility] ([facility]) Erythrocytes [#/volume] in Blood by Automated count 4.94 x10*6/UL 4.2 0-6.30 [facility] ([facility]) MCV 80.5 fL 80.0-97.0 [facility] ([facility]) Hematocrit [Volume Fraction] of Blood by Automated count 39.8 % 3 7.0-51.0 [facility] ([facility]) MCH 27.7 pg 26.0-32.0 [facility] ([facility]) MCHC 34.4 g/dL 31.0-38.0 [facility] ([facility]) Erythrocyte distribution width [Ratio] by Automated count 12.3 % 11.6-13.7 [facility] ([facility]) Platelets [#/volume] in Blood by Automated count 308 x10*3/UL 140-440 [facility] ([facility]) Lymph % 35.1 % 10.0-58.5 [facility] ([facility]) MPV 8.7 FL 7.8-11.0 [facility] ([facility]) Mid % 7.5 % 1.7-9.3 [facility]) Neut % 57.4 % 37.0-92.0 [facility]) Lymph # 1.7 x10*3/UL 0.6-4.1 [facility] ([facility]) Mid # 0.4 x10*3/UL 0.1-0.6 [facility] ([facility]) Neut # 2.9 x10*3/UL 2.0-7.8 [facility] ([facility]) Procedure Vital Signs ID Date Data Source UNK Name Value Range Interpretation Code Description Data Source(s) Body mass index (BMI) [Ratio] 27.4 kg/m2 27.4 k g/m2 [facility] ([facility]) Body weight 175.00 [lb_av] 175.00 [lb_av] [facility] Body height 67 [in_i] 67 [in_i] [facility] ([facility]) 5'7" Heart rate 68 /min 68 /min [facility] ([facility]) Diastolic blood pressure 72 mm[Hg] 72 mm[Hg] [facility] ([facility]) Systolic blood pressure 124 mm[Hg] 124 mm[Hg] [facility] ([facility]) Body mass index (BMI) [Ratio] 27.7 kg/m2 27.7 k g/m2 [facility] ([facility]) Body weight 177.00 [lb_av] 177.00 [lb_av] [facility] ([facility]) Body height 67 [in_i] 67 [in_i] [facility] ([facility]) 5'7" Heart rate 80 /min 80 /min [facility] ([facility]) Diastolic blood pressure 72 mm[Hg] 72 mm[Hg] [facility] ([facility]) Systolic blood pressure 138 mm[Hg] 138 mm[Hg] [facility] ([facility])
[2020-07-18 13:41] VITALS: BP 154/71
== END 2020-07-18 13:48 | disposition home or self-care (01) ==
LOC: M ED 11:55
DX: D17.9 Benign lipomatous neoplasm, unspecified (principal); E11.9 Type 2 diabetes mellitus without complications; Z87.19 Personal history of other diseases of the digestive system; Z79.899 Other long term (current) drug therapy; Z79.4 Long term (current) use of insulin; Z88.1 Allergy status to other antibiotic agents; Z88.2 Allergy status to sulfonamides

== ENCOUNTER → 2020-10-12 | Outpatient (CLI) | payer MEDICARE, OTHER ==
[~2020-10-12] MED LIST changes: +GASTROGRAFIN SOLUTION 30ML (Q9963) As Ordered ONE; +ISOVUE-370 76% 100ML VIAL As Ordered ONE
--- NOTE | 2020-10-12 10:53 | REP ---
INDICATION: LLQ ABD SWELLING/MASS LUMP. COMPARISON: None TECHNIQUE: Standard helical technique before and after the intravenous administration of 100 cc Isovue 370 and oral bowel preparatory contrast administration. FINDINGS: The lung bases are clear. The pre contrast enhanced portion examination shows bilateral renal calculi and bilateral renal parapelvic cysts left greater than right. The postcontrast enhanced portion examination shows the liver and spleen to be within normal limits. The pancreas and adrenal glands are within normal limits. There are no enhancing renal lesions. The bowel loops and the mesenteries are within normal limits. The abdominal aorta and para-regions are within normal limits. There is no evidence of a mass or adenopathy. There is no free fluid or free air. The osseous structures are within normal limits for the patient's age. There is a grade 1 L4 upon L5 spondylolisthesis secondary to bilateral degenerative facet joint changes. There is a left internal abdominal oblique muscle lipoma which measures 4.3 x 1.7 by 4.1 cm and showing no evidence of abnormal enhancement characteristics and just superior to the left iliac crest. IMPRESSION: 1. Bilateral nonobstructing renal calculi on the right the largest 8 mm and on the left the largest 1 cm. 2. Bilateral renal parapelvic cysts. 3. There is no evidence of acute intra-abdominal or intrapelvic disease. 4. Left Internal abdominal oblique muscle lipoma as described above. If this is the point of clinical interest consider pre and post gadolinium enhanced MRI for further evaluation. 1. <Electronically signed by Sukhjinder Gimenez > 10/12/20 0017
== END ==
LOC: M RAD 07:34
PROVIDERS: ATTEND Surgery
DX: N20.0 Calculus of kidney (principal); N28.1 Cyst of kidney, acquired; D17.5 Benign lipomatous neoplasm of intra-abdominal organs
CPT/HCPCS: 74178; Q9963; Q9967

== ENCOUNTER → 2021-05-19 | Outpatient (CLI) | payer MEDICARE, OTHER ==
[~2021-05-19] MED LIST changes: -GASTROGRAFIN SOLUTION 30ML (Q9963) As Ordered ONE; -ISOVUE-370 76% 100ML VIAL As Ordered ONE
[2021-05-19 22:52] LABS: BLOOD UREA NITROGEN 11 MG/DL (7-18); CREATININE FOR GFR 0.49 MG/DL (0.55-1.30); GLOMERULAR FILTRATION RATE > 60.0 (>39)
== END ==
LOC: M WUC 15:25
PROVIDERS: ATTEND Physician Assistant Medical
DX: D49.7 Neoplasm of unspecified behavior of endocrine glands and other parts of nervous system (principal)

== ENCOUNTER → 2021-05-23 | Outpatient (CLI) | payer MEDICARE, OTHER ==
[~2021-05-23] MED LIST changes: +PROHANCE 279.3MG/ML 15ML VIAL As Ordered ONE
== END ==
LOC: M RAD 10:38
PROVIDERS: ATTEND Neurological Surgery
DX: D49.7 Neoplasm of unspecified behavior of endocrine glands and other parts of nervous system (principal); M50.30 Other cervical disc degeneration, unspecified cervical region
CPT/HCPCS: 72156; A9576

== ENCOUNTER → 2022-05-07 | Outpatient (REF) | payer MEDICARE, OTHER ==
[~2022-05-07] MED LIST changes: -PROHANCE 279.3MG/ML 15ML VIAL As Ordered ONE
== END ==
LOC: M LAB REF 19:57
PROVIDERS: ATTEND Physician Assistant
DX: R30.0 Dysuria (principal)

== ENCOUNTER → 2022-11-19 | Outpatient (REF) | payer MEDICARE, OTHER | LOC: M LAB REF 19:02 | PROVIDERS: ATTEND Student in an Organized Health Care Education/Training Program | DX: R30.0 Dysuria (principal) ==

== ENCOUNTER → 2022-11-21 | Outpatient (REF) | payer MEDICARE, OTHER | LOC: M LAB REF 12:27 | PROVIDERS: ATTEND Internal Medicine | DX: R31.9 Hematuria, unspecified (principal) ==

== ENCOUNTER → 2022-11-29 | Outpatient (REF) | payer MEDICARE, OTHER | LOC: M LAB REF 17:25 | PROVIDERS: ATTEND Internal Medicine | DX: R31.9 Hematuria, unspecified (principal); R82.89 Other abnormal findings on cytological and histological examination of urine ==

== ENCOUNTER → 2022-12-06 | Outpatient (REF) | payer MEDICARE, OTHER | LOC: M LAB REF 12:05 | PROVIDERS: ATTEND Internal Medicine | DX: R31.9 Hematuria, unspecified (principal) ==

== ENCOUNTER → 2022-12-08 | Outpatient (CLI) | payer MEDICARE, OTHER ==
[~2022-12-08] MED LIST changes: +ISOVUE-370 76% 100ML VIAL As Ordered ONE
== END ==
LOC: M RAD 14:12
PROVIDERS: ATTEND Internal Medicine
DX: R31.9 Hematuria, unspecified (principal); R19.7 Diarrhea, unspecified
CPT/HCPCS: 74178; Q9967

== ENCOUNTER → 2023-01-09 | Outpatient (REF) | payer MEDICARE, OTHER ==
[~2023-01-09] MED LIST changes: -ISOVUE-370 76% 100ML VIAL As Ordered ONE
== END ==
LOC: M LAB REF 14:34
PROVIDERS: ATTEND Internal Medicine
DX: E83.52 Hypercalcemia (principal)

== ENCOUNTER → 2023-05-10 | Outpatient (REF) | payer MEDICARE, OTHER | LOC: M LAB REF 12:27 | PROVIDERS: ATTEND Internal Medicine | DX: E83.52 Hypercalcemia (principal) ==

== ENCOUNTER → 2023-09-19 | Outpatient (CLI) | payer MEDICARE, OTHER | LOC: M WHC 10:49 | PROVIDERS: ATTEND Internal Medicine | DX: M85.89 Other specified disorders of bone density and structure, multiple sites (principal) ==

== ENCOUNTER → 2024-01-01 | Outpatient (CLI) | payer MEDICARE, OTHER ==
[~2024-01-01] MED LIST changes: +PROHANCE 279.3MG/ML 15ML VIAL ONE
== END ==
LOC: M PLAIMG 07:33
PROVIDERS: ATTEND Nurse Practitioner Family
DX: D49.7 Neoplasm of unspecified behavior of endocrine glands and other parts of nervous system (principal); M99.71 Connective tissue and disc stenosis of intervertebral foramina of cervical region; Z86.03 Personal history of neoplasm of uncertain behavior; Z98.890 Other specified postprocedural states
CPT/HCPCS: 72156; A9576

== ENCOUNTER → 2024-02-12 | Outpatient (REF) | payer MEDICARE, OTHER ==
[~2024-02-12] MED LIST changes: -PROHANCE 279.3MG/ML 15ML VIAL ONE
[2024-02-12 14:28] LABS: PHOSPHORUS LEVEL 3.7 MG/DL (2.4-5.1)
[2024-02-12 16:38] LABS: PTH INTACT 85.2 PG/ML (18.5-88.0)
== END ==
LOC: M LAB REF 13:05
PROVIDERS: ATTEND Internal Medicine
DX: E83.52 Hypercalcemia (principal)

== ENCOUNTER → 2024-06-02 | Outpatient (REF) | payer MEDICARE, OTHER | LOC: M LAB REF 11:51 | PROVIDERS: ATTEND Nurse Practitioner Family | DX: R30.0 Dysuria (principal) ==

== ENCOUNTER → 2025-03-26 | Outpatient (CLI) | payer MEDICARE, OTHER ==
[~2025-03-26] MED LIST changes: +HYDR12.510 PO; -HYDR12CA PO
== END ==
LOC: M PLARAD 08:24
PROVIDERS: ATTEND Physician Assistant
DX: D32.1 Benign neoplasm of spinal meninges (principal); M47.812 Spondylosis without myelopathy or radiculopathy, cervical region; M48.02 Spinal stenosis, cervical region; G95.89 Other specified diseases of spinal cord